=== PATIENT | female | born 1960 | race Native Hawaiian/Other Pacific Islander ===

== ENCOUNTER 2018-12-11 15:03 | Outpatient (CLI) | payer OTHER | END 2018-12-11 15:04 | disposition home or self-care (01) | LOC: C.MAMMO 15:03 | DX: Z12.31 Encounter for screening mammogram for malignant neoplasm of breast (principal); M81.0 Age-related osteoporosis without current pathological fracture ==

== ENCOUNTER → 2018-12-20 | Outpatient (CLI) | payer OTHER | LOC: C.CARD 06:52 ==

== ENCOUNTER 2018-12-31 06:27 | Outpatient (CLI) | payer OTHER | END 2018-12-31 06:28 | disposition home or self-care (01) | LOC: C.LAB 06:27 ==